=== PATIENT | male | born 2000 | race Caucasian/White ===

== ENCOUNTER 2022-03-31 12:27 | Emergency (ER) | payer BC ==
[~2022-03-31] VITALS: Ht 182.9 cm; Wt 86.4 kg
[2022-03-31 12:37] VITALS: TEMP 102.9
[2022-03-31 13:40] LABS: BASO % 0.6 % (0.0-2.0); EOS % 0.4 % (0.0-4.0); GRAN # 3.6 K/mm3 (1.4-6.5); GRAN % 70.9 % (42.2-75.2); HEMATOCRIT 44.4 % (36.0-47.0); HEMOGLOBIN 14.7 g/dl (12.5-16.1); LYMPH # 0.9 K/mm3 (1.2-3.4); LYMPH % 17.9 % (20.0-51.0); MEAN CELL VOLUME 90 fl (80.0-95.0); MEAN CORPUSCULAR HEMOGLOBIN 30 pg (26-32); MEAN CORPUSCULAR HGB CONC 33 g/dl (33.0-37.0); MEAN PLATELET VOLUME 10.3 fl (7.4-10.4); MONO # 0.5 K/mm3 (0.1-0.6); PLATELET COUNT 286 K/mm3 (130-400); RED BLOOD COUNT 4.91 M/mm3 (4.20-5.60); REDCELL DISTRIBUTION WIDTH-CV 12.5 % (11.5-14.5)
[2022-03-31 14:00] LABS: BILIRUBIN,TOTAL 0.4 mg/dL (0.2-1.2); CALCIUM 9.2 mg/dL (8.4-10.2); CREATININE, serum 1.41 mg/dL (0.72-1.25); POTASSIUM 3.7 mmol/L (3.5-4.5); TOTAL PROTEIN 7.7 gm/dL (6.2-8.1)
[2022-03-31 14:59] VITALS: BP 139/50
[2022-03-31 15:02] VITALS: PULSE 99
[2022-04-05] MEDS ORDERED: ZITHROMAX Z PA250 MG PO (17:32)
[2022-04-05] MEDS ORDERED: PREDNISONE20 MG PO (17:32)
[2022-04-05] MEDS ORDERED: PROAIR HFA0.09 MG/AC IH (17:32)
== END 2022-03-31 15:10 | disposition home or self-care (01) ==
LOC: COL.ER 12:27
PROVIDERS: Personal Emergency Response Attendant
DX: J10.1 Influenza due to other identified influenza virus with other respiratory manifestations (principal); Z28.310 Unvaccinated for COVID-19; Z20.822 Contact with and (suspected) exposure to COVID-19
CPT/HCPCS: J7030

== ENCOUNTER 2024-03-11 16:11 | Emergency (ER) | payer OTHER ==
[~2024-03-11] VITALS: Ht 180.3 cm; Wt 88.6 kg
[~2024-03-11 16:11] MED LIST: PEN-VEE K500 MG PO; PREDNISONE20 MG PO; PROAIR HFA0.09 MG/AC IH; ZITHROMAX Z PA250 MG PO
[2024-03-11 18:30] LABS: BASO % 0.5 % (0.0-2.0); EOS % 0.1 % (0.0-4.0); GRAN # 6.1 K/mm3 (1.4-6.5); GRAN % 71.2 % (42.2-75.2); HEMATOCRIT 41.9 % (42.0-52.0); HEMOGLOBIN 14.4 g/dl (13.5-18.0); LYMPH # 1.7 K/mm3 (1.2-3.4); LYMPH % 20.4 % (20.0-51.0); MEAN CELL VOLUME 91 fl (80.0-100.0); MEAN CORPUSCULAR HEMOGLOBIN 31 pg (27-31); MEAN CORPUSCULAR HGB CONC 34 g/dl (33.0-37.0); MONO # 0.6 K/mm3 (0.1-0.6); MONO % 7.4 % (1.7-9.3); PLATELET COUNT 246 K/mm3 (130-400); RED BLOOD COUNT 4.63 M/mm3 (4.20-5.60); REDCELL DISTRIBUTION WIDTH-CV 12.4 % (11.5-14.5)
[2024-03-11 18:50] LABS: ALANINE AMINOTRANSFERASE 19 U/L (0-55); ALBUMIN 4.1 g/dL (3.5-5.0); ALKALINE PHOSPHATASE 42 U/L (40-150); ANION GAP 10 mmol/L (7-16); AST,SGOT 22 U/L (5-34); BILIRUBIN,TOTAL 0.5 mg/dL (0.2-1.2); BLOOD UREA NITROGEN 10 mg/dL (9-21); CALCIUM 9.2 mg/dL (8.4-10.2); CHLORIDE 109 mEq/L (98-107); SODIUM 141 mEq/L (136-145); TOTAL PROTEIN 6.9 g/dl (6.2-8.1)
[2024-03-11 19:01] LABS: ALCOHOL(ethanol),MEDICAL < 10 mg/dL (0-10); SALICYLATE < 5.0 mg/dL (15.0-30.0)
[2024-03-11 19:02] LABS: GLUCOSE 92 mg/dL (70-99)
[2024-03-11 19:36] LABS: TSH w REFLEX 0.809 uIU/mL (0.350-4.940)
[2024-03-11 21:00] LABS: COLLECTION METHOD CLEAN CATCH
[2024-03-11 21:07] LABS: PH 5.5 (5.0-8.5); URINE APPEARANCE CLEAR (CLEAR/HAZY); URINE BLOOD NEGATIVE (NEGATIVE); URINE COLOR YELLOW (YELLOW); URINE GLUCOSE NEGATIVE (NEGATIVE); URINE KETONE 2+ (NEGATIVE); URINE NITRATE NEGATIVE (NEGATIVE); URINE PROTEIN(semi-quant) NEGATIVE (NEGATIVE); URINE UROBILINOGEN 0.2 E.U/dL (0.2-1.0)
[2024-03-11 21:41] LABS: TRICYCLIC ANTIDEPRESS URINE NEGATIVE (NEGATIVE)
[2024-03-11 22:00] VITALS: BP 117/73; TEMP 98.3
[2024-03-11 23:30] VITALS: PULSE 64
== END 2024-03-11 23:30 | disposition home or self-care (01) ==
LOC: COL.ER 16:11
PROVIDERS: Emergency Medicine
DX: R45.851 Suicidal ideations (principal)